=== PATIENT | female | born 1945 | race Caucasian/White ===

== ENCOUNTER → 2016-06-20 | Outpatient (CLI) | payer MEDICARE, OTHER ==
[~2016-06-20] VITALS: Ht 163.8 cm; Wt 98.7 kg
[~2016-06-20] MED LIST: ADVAIR 500/28 DISKUS IH; ASPIR-LOW81 MG PO; ASPIR-LOX325 MG PO; ASPIRIN E.C. 8181 MG PO; CALTRATE-600 W600 MG PO; CHLOR-TABS4 MG PO; CHLORTABS PO; DUO-KAPS1 CAP PO; GLUCOPHAGE1000 MG PO; GLUCOPHAGE500 MG/TAB PO; HCTZ 25MG25 MG PO; HCTZ12.5TAB PO; HUMALOG 75/2100 U/ML SQ; LIPITOR 40MG TA40 MG PO; LORTAB 5/500 501 TAB PO; NEXIUM 40MG40 MG PO; NEXIUM40 MG PO; NITROSTAT0.4 MG/TAB SL; NYSTATIN POWDER30 GM TOP; PRILOSEC 20MG20 MG PO; PROAIR HFA0.09 MG/AC IH; PROZAC 20MG20 MG PO; RT ADVAIR 128 DISKUS IH; RT ADVAIR 228 DISKUS IH; SIMETHICONE80 MG PO; SINGULAIR 110 MG/TAB PO; SINGULAIR10 MG PO; VISION FORMULA1 TAB PO; VITAMIN D 1001000 IU PO; VITAMIN D1000 IU PO; VYTORIN 10 MG-11 TAB PO; VYTORIN PO
[2016-06-20 14:01] VITALS: BP 121/59; PULSE 77
== END ==
LOC: LIGHT 13:55
DX: Z98.84 Bariatric surgery status (principal); F32.89 Other specified depressive episodes; E66.9 Obesity, unspecified; Z68.36 Body mass index [BMI] 36.0-36.9, adult; Z71.3 Dietary counseling and surveillance